=== PATIENT | female | born 1940 | race Caucasian/White ===

== ENCOUNTER 2018-03-23 10:00 | Inpatient (IN) | payer MEDICARE, OTHER ==
[2018-03-23] MEDS ORDERED: IPRATROPIUM/ALBUTEROL SULFATE 3 ML AMPUL.NEB NEB ONE ×2 (10:32→14:46)
--- NOTE | 2018-03-23 10:36 | ED Physician Documentation ---
Dyspnea - HISTORIAN Historian: patient - HPI Chief Complaint: Dyspnea Additional Information: 77yo white female who has a hisotry of asthma, COPD, CAD. States that she has been having some increase difficulties with breathing over the last 3 week. Has gotten worse over that last 36hours. Has been using Duoneb several times a day to help with her breathing. Has been wheezing and coughing, productive of some clear/green phlegm. No heomphysis noted. Patient has a history of CHF. Patient has been noticing some increasing peel edema the denies that she is heading increasing weight. Patient had similar symptoms with the increasing peel edema several weeks ago and increase to Lasix for short period of time. Patient denies any chest pain chest pressure.Patient comes in for an evaluation and treatment of the breathing problems. Onset: other (weeks, wore over the last 36 hours) Duration: continues in ED Initiating Event: denies: upper respiratory illness, out of meds Context: no precipitating factor noted. Exacerbated By: exertion Associated Symptoms: denies: chills, fever - ROS CONST: no problems MS/SKIN/LYMPH: denies: neck pain, rash - PAST HX Lung Disease: asthma, COPD Cardiac Disease: CAD, other (decrase hearing, hypothyroidism) PE Risk Factors: leg swelling, other (traveling) Surgeries/Procedures: appendectomy, other ( x 3, hernia repair, left breast lumpectomy, AP Bladder repair, L oopherectomy, ORIF hip fracture) Allergies/Adverse Reactions: Allergies Allergy/AdvReac Type Severity Reaction Status Date / Time Sulfa (Sulfonamide Allergy Verified 03/23/18 10:36 Antibiotics) Home Medications: Ambulatory Orders Medication Instructions Recorded Albuterol Sulfate [Proair HFA] 2 puff INH PRN PRN 03/23/18 Aspirin [Radha] 1 tab PO DAILY 03/23/18 Carvedilol [Coreg] 1 tab PO BID 03/23/18 Duloxetine HCl [Cymbalta] 1 tab PO [id number] 03/23/18 Furosemide [Lasix] 1 tab PO DAILY 03/23/18 Hydroxychloroquine Sulfate 1 tab PO BID 03/23/18 [Plaquenil] Levothyroxine Sodium [Levo-T] 1 tab PO DAILY 03/23/18 Pantoprazole Sodium [Protonix] 1 tab PO DAILY 03/23/18 Rosuvastatin Calcium [Crestor] 1 tab PO HS 03/23/18 Telmisartan [Telmisartan] 1 tab PO DAILY 03/23/18 - SOCIAL HX Smoking History: non-smoker, quit greater than 1 year (1981) Alcohol Use: none Drug Use: none - FAMILY HX Family History: no significant history - REVIEWED ASSESSMENTS Nursing Assessment Reviewed: Yes Vitals Reviewed: Yes Progress - Progress Progress: 11:42 D dimer is elevated, will get CT scan of chest to R/O DVT. BNP elevated also but no pulmonary congestion noted on chest x-ray. Patient did get osme relief from Duoneb. 13:28 Patient states that she has some type of allergic reaction when she recieved IV contrast dye in the past about 25 years ago. Had a rash, ? breathing problems. Has not had CT contrast dye since that time. Will get venous doppler study done. ED Results Lab/Radiology - Radiology Radiology Impressions: Examination: PA and lateral chest. History: DYSPNEA X 10 DAYS HX OF COPD/ASTHMA (Hx) Comparison exam: None provided. Findings: PA lateral chest demonstrate a normal cardiac and mediastinal silhouette. Tortuous aorta with vascular calcifications involving the aortic arch. No focal infiltrate. No blunting of the costophrenic margins. Hilar granuloma. Left-sided cardiac pacemaker. Osseous structures are appropriate for age. Impression: No acute appearing pulmonary process. Examination: Ultrasound vein bilaterally History: pt allergic to ct contrast r/o PE bilat lower leg venous Findings: Sonographic evaluation of the lower extremity venous system from the groin to the popliteal fossa inclusive bilaterally. Normal compressibility. No luminal filling defect. Normal waveforms and response to augmentation. No popliteal region fluid collection. Impression: No evidence for deep venous thrombosis. - Orders Orders: ED Orders Category Date Time Status Continuous EKG monitoring Q30M Care 03/23/18 10:30 Ordered Continuous Pulse Oximetry Q30M Care 03/23/18 10:[address] IV Lock 1T Care 03/23/18 10:30 Ordered CHEST 2VIEW [RAD] Routine Exams 03/23/18 Ordered BNP [NT-proBNP] Routine Lab 03/23/18 Ordered CBC/PLATELET/DIFF Routine Lab 03/23/18 10:30 Ordered CMP Routine Lab 03/23/18 10:30 Ordered D DIMER Routine Lab 03/23/18 Ordered TROPONIN I (cTnI) Stat Lab 03/23/18 10:30 Ordered Ipratropium/Albuterol Sulfate [Duoneb] Med 03/23/18 10:32 Once 3 ml NEB NOW ONE Oxygen Daily Oxygen 03/23/18 10:30 Ordered EKG WITH COMPARISON Routine Ther 03/23/18 Completed EKG WITH COMPARISON Stat Ther 03/23/18 10:30 Ordered Dyspnea Physical Exam - EXAM General Appearance: alert, mild distress EENT: eye inspection normal, ENT inspection normal, pharynx normal Neck: nml inspection Respiratory: breath sounds nml, no pain on inspiration, speaks full sentences, respiratory distress (mild), wheezes, rales, no pleuritic chest pain CVS: reg. rate & rhythm, no murmur, no gallop, no friction rub, pulses full, pulses equal Abdomen: non-tender, no organomegaly, no distention, no ascites Skin: color nml, no rash, cyanosis, diaphoresis Extremities: non-tender, edema Neuro/Psych: oriented x3, CN's nml as tested, motor nml, sensation nml, mood/ affect nml Discharge Clincal Impression: Acute exacerbation of COPD with asthma Condition: Stable Disposition: ADMITTED INPATIENT Decision to Admit: [id number] Date of Decison to Admit: 03/23/18 Decision Time: 15:01
[2018-03-23 10:45] LABS: BASOPHILS % 1.2 (0.0-1.5); MEAN CORPUSCULAR HEMOGLOBIN 30.7 pg (28.0-34.0); MEAN CORPUSCULAR VOLUME 100.4 fl (80.0-100.0); MONOCYTES % 7.2 % (0.0-11.0); NEUTROPHILS # 1.9 # k/uL (1.4-7.7)
[2018-03-23 11:02] LABS: eGFR (African) > 60; eGFR (Non-African) > 60
[2018-03-23] MEDS ORDERED: methylPREDNISolone SOD SUCC 125 MG/2 ML VIAL IVP ONE (12:05)
--- NOTE | 2018-03-23 14:12 | Diagnostic Imaging Report ---
GISELLE MENSAH [facility] [address] [facility].[address] [address] Report Submission Date: Mar 23, 2018 11:51:42 AM CDT Patient Study Name: ANAI GONZALEZ Date: Mar 23, 2018 11:20:37 AM CDT Modality Type: DX Gender: F Description: CHEST : 38 Institution: [facility] Physician: GISELLE MENSAH Examination: PA and lateral chest. History: DYSPNEA X 10 DAYS HX OF COPD/ASTHMA (Hx) Comparison exam: None provided. Findings: PA lateral chest demonstrate a normal cardiac and mediastinal silhouette. Tortuous aorta with vascular calcifications involving the aortic arch. No focal infiltrate. No blunting of the costophrenic margins. Hilar granuloma. Left-sided cardiac pacemaker. Osseous structures are appropriate for age. Impression: No acute appearing pulmonary process. Electronically signed on Mar 23, 2018 11:51:42 AM CDT by: Simon CASTILLO
[2018-03-23 14:21] LABS: APPEARANCE,URINE CLEAR (CLEAR); COLOR,URINE YELLOW (YELLOW); OCCULT BLOOD,URINE NEGATIVE (NEGATIVE); UROBILINOGEN URINE 0.2 Eu (0.2-1.0)
--- NOTE | 2018-03-23 15:51 | Diagnostic Imaging Report ---
GISELLE MENSAH [facility] [address] [facility], [facility] [address] [address] Report Submission Date: Mar 23, 2018 3:41:07 PM CDT Patient Study Name: ANAI GONZALEZ Date: Mar 23, 2018 2:00:50 PM CDT Modality Type: US Gender: F Description: : 38 Institution: [facility] Physician: GISELLE MENSAH Examination: Ultrasound vein bilaterally History: pt allergic to ct contrast r/o PE bilat lower leg venous Findings: Sonographic evaluation of the lower extremity venous system from the groin to the popliteal fossa inclusive bilaterally. Normal compressibility. No luminal filling defect. Normal waveforms and response to augmentation. No popliteal region fluid collection. Impression: No evidence for deep venous thrombosis. Electronically signed on Mar 23, 2018 3:41:07 PM CDT by: Simon CASTILLO
--- NOTE | 2018-03-23 16:38 | History and Physical Report ---
History of Present Illnes - History of Present Illness Reason for Visit: dyspnea History of Present Illness: Patient is a 69-year-old white female with a known history of COPD and asthma. Patient states she is been having some increasing dyspnea shortness of breath over the last three weeks. However over the last 3 to 4 days symptoms of progressively be getting worse. Patient subsequently came into the ED for evaluation. Patient was noted to be hypoxic with an SaO2 in the lower to mid 80 range on room air. Patient was given to DuoNeb treatments with improvement to her oxygenation to 88 to 92%. Patient was given Solu-Medrol hundred 25 mg IV in the ED. Patient had a BNP and D dimer which were both elevated. Patient was not able to have a CT scan done of the chest due to past allergic reaction to IV contrast by. Patient did have ultrasound of the lower extremities bilaterally and were negative for DVTs. Chest x-ray did not show any evidence of increasing pulmonary congestion. Patient was felt to be have an exacerbation of her COPD was subsequently admitted to the hospital for further evaluation and treatment. - Past Medical History Cardiac: CAD, CHF, HTN, Hyperlipidemia Pulmonary: Asthma, COPD Gastrointestinal: Constipation, GERD Hepatobiliary: Hep A/B/C (hep A) ENT: Other (decrease hearing) Renal/: Chronic renal insuff Endocrine: Hypothyroidism, Other (pituitary tumor recently removed) - Past Surgical History Past Surgical History: Appendectomy, (x3), Other (ORIF hip fracture, left oopherectomy, AP bladder repair, lumpectomy left breast) - Past Social History Smoke: # pack years (20), Quit (1981) Occupation: retired Alcohol: None Drugs: None Lives: With Family Domestic Violence: Negative - Health Maintenance Health Maintenance: Cholesterol, Influenza Vaccine, Pneumococcal Vaccine, Mammogram, Colonoscopy Influenza Vaccine: Current for this Influenza Season Pneumonia Vaccine: Yes Resuscitation Status: FULL CODE but no mechanical ventolations - Unable to Obtain History Unable to Obtain: No Review of Systems - Review of Systems Constitutional: Weakness. negative: Fever, Chills, Sweats, Malaise Eyes: negative: pain, vision change, conjunctivae inflammation ENT: negative: Ear Pain, Ear Discharge, Nose Pain, Nose Discharge, Nose Congestion, Mouth Pain, Mouth Swelling, Throat Pain, Throat Swelling Respiratory: Cough, Shortness of Breath, SOB with Excertion, Sputum, Wheezing. negative: Dry, Hemoptysis, Pleuritic Pain Cardiovascular: negative: Chest Pain, Palpitations, Orthopnea, Paroxysmal Noc. Dyspnea, Edema, Light Headedness Gastrointestinal: Constipation. negative: Nausea, Vomiting, Abdominal Pain, Diarrhea, Melena, Hematochezia Genitourinary: negative: Dysuria, Frequency, Hematuria Musculoskeletal: Leg Pain (hip). negative: Neck Pain, Shoulder Pain, Arm Pain, Hand Pain Skin: negative: Rash Neurological: negative: Weakness, Numbness, Incoordination, Change in Speech, Confusion, Seizures - Medications/Allergies Allergies/Adverse Reactions: Allergies Allergy/AdvReac Type Severity Reaction Status Date / Time Sulfa (Sulfonamide Allergy Verified 03/23/18 10:36 Antibiotics) Home Medications: Home Medications Albuterol Sulfate [Proair HFA] 2 puff INH PRN PRN 03/23/18 Aspirin [Radha] 1 tab PO DAILY 03/23/18 Carvedilol [Coreg] 1 tab PO BID 03/23/18 Duloxetine HCl [Cymbalta] 1 tab PO [id number] 03/23/18 Furosemide [Lasix] 1 tab PO DAILY 03/23/18 Hydroxychloroquine Sulfate [Plaquenil] 1 tab PO BID 03/23/18 Levothyroxine Sodium [Levo-T] 1 tab PO DAILY 03/23/18 Pantoprazole Sodium [Protonix] 1 tab PO DAILY 03/23/18 Rosuvastatin Calcium [Crestor] 1 tab PO HS 03/23/18 Telmisartan [Telmisartan] 1 tab PO DAILY 03/23/18 Exam - Exam General: Alert, Oriented to Person, Oriented to Place, Oriented to Time, Cooperative, Mild distress, Obese HEENT: Atraumatic, PERRLA, EOMI, Mouth Mucous membr. moist/Vandiver, Nose Mucous membr. moist/Vandiver, Edentulous, Decreased Hearing Acuity Neck: Normal Range of Motion Carotids: WNL Thyroid: WNL Lungs: Normal air movement, Speaks full Sentences, Wheezes, Rales (scattered) Cardiovascular: Regular rate, Normal S1, Normal S2, No murmurs. No: Gallops, Murmur, Irregularly Irregular Abdomen: Normal bowel sounds, Soft, No tenderness, No hepatospenomegaly, No masses Integumentary: Normal, Vandiver, Warm, Dry Extremities: No clubbing, No cyanosis, No edema, Normal pulses, No tenderness/ swelling Neurological: Normal gait, Normal speech, Strength Equal Bilat, Normal tone, Sensation intact, Cranial nerves 3-12 NL, Reflexes 2+ Psych/Mental Status: Mental status NL, Mood NL, Appropriate Affect, Intact Judgment Assessment/Plan - Assessment/Plan (1) Acute exacerbation of COPD with asthma Status: Acute Current Visit: Yes (2) CHF (congestive heart failure) Status: Acute Current Visit: Yes (3) Hypothyroidism Status: Acute Current Visit: Yes (4) Hypertension Status: Acute Current Visit: Yes VTE Assessment - RISK FACTOR SCORE VTE RISK FACTOR SCORES: AGE OVER 60 YEARS, ACUTE RESPIRATORY FAILURE/SEVERE COPD , ANTICIPATED BED CONFINEMENT OR IMMOBILIZATION > 24 HOURS - RISK VTE HIGH RISK: SCORE OF 3-4 (RISK PROXIMAL DVT 4-8%) PROPHYLAXIS NEEDED
[2018-03-23 16:51] VITALS: BMI 33.0
[2018-03-23] MEDS ORDERED: FUROSEMIDE 20 MG TABLET PO ONE (18:20)
[2018-03-23] MEDS: methylPREDNISolone SOD SUCC 40 MG/ML VIAL IVP SCH ×2 (18:28→20:19)
[2018-03-23] MEDS: ENOXAPARIN SODIUM 30 MG/0.3 ML DISP.SYRIN SQ SCH (18:30)
[2018-03-23] MEDS: FUROSEMIDE 20 MG/2 ML VIAL IVP SCH ×2 (18:30→20:18)
[2018-03-23] MEDS: IPRATROPIUM/ALBUTEROL SULFATE 3 ML AMPUL.NEB NEB SCH ×2 (19:12→20:19)
[2018-03-23] MEDS ORDERED: SALINE FLUSH 10 ML DISP.SYRIN IV SCH (21:00)
[2018-03-23] MEDS ORDERED: CARVEDILOL 25 MG TABLET PO SCH (21:00)
[2018-03-23] MEDS ORDERED: HYDROXYCHLOROQUINE SULFATE 200 MG TABLET PO SCH (21:00)
[2018-03-23] MEDS: ACETAMINOPHEN 325 MG TABLET PO PRN (21:16)
[2018-03-24] MEDS: IPRATROPIUM/ALBUTEROL SULFATE 3 ML AMPUL.NEB NEB SCH ×6 (01:55→21:21)
[2018-03-24] MEDS: ACETAMINOPHEN 325 MG TABLET PO PRN (02:56)
[2018-03-24] MEDS ORDERED: TROLAMINE SALICYLATE TP PRN (04:20)
[2018-03-24] MEDS ORDERED: ALOE VERA TP PRN (04:20)
[2018-03-24 07:09] LABS: eGFR (African) > 60; eGFR (Non-African) > 60
[2018-03-24] MEDS: methylPREDNISolone SOD SUCC 40 MG/ML VIAL IVP SCH ×2 (08:35→19:57)
[2018-03-24] MEDS: FUROSEMIDE 20 MG/2 ML VIAL IVP SCH ×2 (08:38→19:54)
[2018-03-24] MEDS: PATIENT OWN MED 1 EACH EACH PO SCH (08:39)
[2018-03-24] MEDS: SALINE FLUSH 10 ML DISP.SYRIN IVF SCH ×2 (08:40→20:00)
[2018-03-24] MEDS ORDERED: CARVEDILOL 25 MG TABLET PO SCH (09:00)
[2018-03-24] MEDS ORDERED: ASPIRIN 81 MG CHEW TAB PO SCH ×2 (09:00)
[2018-03-24] MEDS ORDERED: LEVOTHYROXINE SODIUM 25 MCG TABLET PO SCH ×2 (09:00)
[2018-03-24] MEDS ORDERED: CARVEDILOL 12.5 MG TABLET PO SCH (09:00)
[2018-03-24] MEDS ORDERED: PATIENT OWN MED 1 EACH EACH PO SCH (09:00)
[2018-03-24] MEDS ORDERED: PANTOPRAZOLE SODIUM 40 MG TABLET PO SCH ×2 (09:00)
[2018-03-24] MEDS: HYDROXYCHLOROQUINE SULFATE 200 MG TABLET PO SCH ×2 (09:07→20:34)
--- NOTE | 2018-03-24 10:27 | Inpatient Progress Note ---
Subjective - Required Recertification Statement I anticipate X number of days because-include discharge plan: 1 day - Review of Systems Events since last encounter: Patient seems to be doing better. States that her breathing is better. Swelling in the lower extremities is improved. No chest pain or pressure noted. Is having some constipation problems/ Objective - Exam Vitals and I&O: Vital Signs Temp 97.6 F 03/24/18 09:46 Pulse 70 03/24/18 09:46 Resp 20 03/24/18 09:46 BP 176/78 03/24/18 09:46 Pulse Ox 94 03/24/18 09:46 Intake & Output 03/23/18 03/23/18 03/24/18 11:59 23:59 11:59 Intake Total 274 960 Balance 274 960 Weight 76.657 kg 74 kg Intake: IV 34 Right Hand 34 Oral 240 960 Other: Voiding Method Toilet Toilet # Voids 3 5 General: Alert, Oriented to Person, Oriented to Place, Oriented to Time, Cooperative Neck: Supple, No JVD Lungs: Normal air movement, Speaks full Sentences, Rhonchi (few scattered, improved over yesterday) Cardiovascular: Regular rate, Normal S1, Normal S2, No murmurs Abdomen: Normal bowel sounds, Soft, No tenderness, No hepatospenomegaly, No masses Extremities: Other (trace edema) Neurological: Normal gait, Normal speech Psych/Mental Status: Mental status NL, Mood NL, Intact Judgment - Results Results: Laboratory Results WBC 3.90 K/ul (4.00-12.00) L 03/23/18 10:40 RBC 3.64 M/ul (3.90-5.20) L 03/23/18 10:40 Hgb 11.2 g/dL (12.0-16.0) L 03/23/18 10:40 Hct 36.6 % (34.5-46.5) 03/23/18 10:40 MCV 100.4 fl (80.0-100.0) H 03/23/18 10:40 MCH 30.7 pg (28.0-34.0) 03/23/18 10:40 MCHC 30.6 g/dL (30.0-36.0) 03/23/18 10:40 RDW 13.8 % (11.3-14.3) 03/23/18 10:40 Plt Count 239 K/mm3 (130-400) 03/23/18 10:40 Neut % (Auto) 48.0 % (39.0-79.0) 03/23/18 10:40 Lymph % (Auto) 32.5 % (16.0-50.0) 03/23/18 10:40 [place]key % (Auto) 7.2 % (0.0-11.0) 03/23/18 10:40 Eos % (Auto) 8.0 % (0.0-6.8) H 03/23/18 10:40 Baso % (Auto) 1.2 (0.0-1.5) 03/23/18 10:40 Neut # (Auto) 1.9 # k/uL (1.4-7.7) 03/23/18 10:40 Lymph # (Auto) 1.3 # k/uL (0.6-4.0) 03/23/18 10:40 Dickey # (Auto) 0.3 # k/uL (0.0-0.9) 03/23/18 10:40 Eos # (Auto) 0.3 # k/uL (0.0-0.6) 03/23/18 10:40 Baso # (Auto) 0.0 # k/uL (0.0-0.5) 03/23/18 10:40 Reactive Lymphs % 3.0 % (0.0-5.0) 03/23/18 10:40 Reactive Lymphs # 0.1 # k/uL (0.0-0.8) 03/23/18 10:40 D-Dimer 965 ng/mL (6.0-682) H 03/23/18 10:40 Sodium 141 mmol/L (136-145) 03/24/18 06:30 Potassium 3.8 mmol/L (3.5-5.1) 03/24/18 06:30 Chloride 98 mmol/L (98-107) 03/24/18 06:30 Carbon Dioxide 33 mmol/L (22-30) H 03/24/18 06:30 BUN 17 mg/dL (7-17) 03/24/18 06:30 Creatinine 0.80 mg/dL (0.52-1.04) 03/24/18 06:30 Estimated Creat Clear 79 03/24/18 06:30 Est GFR ( Amer) > 60 (60-) 03/24/18 06:30 Est GFR (Non-Af Amer) > 60 (60-) 03/24/18 06:30 Glucose 161 mg/dL (74-106) H 03/24/18 06:30 Calcium 9.7 mg/dL (8.4-10.2) 03/24/18 06:30 Total Bilirubin 0.3 mg/dL (0.2-1.3) 03/23/18 10:40 AST 22 U/L (15-46) 03/23/18 10:40 ALT 31 U/L (13-69) 03/23/18 10:40 Alkaline Phosphatase 73 U/L (38-126) 03/23/18 10:40 Troponin I < 0.03 ng/mL (0.03-0.06) L 03/23/18 10:40 NT-Pro-B Natriuret Pep 826.1 pg/mL (15.0-450.0) H 03/23/18 10:40 Total Protein 7.4 g/dL (6.3-8.2) 03/23/18 10:40 Albumin 4.2 g/dL (3.5-5.0) 03/23/18 10:40 Urine Color Yellow (YELLOW) 03/23/18 10:50 Urine Appearance Clear (CLEAR) 03/23/18 10:50 Urine pH 7.0 (5.0 - 8.0) 03/23/18 10:50 Ur Specific [place] 1.020 (1.010-1.030) 03/23/18 10:50 Urine Protein Negative mg/dL (NEGATIVE) 03/23/18 10:50 Urine Ketones Negative mg/dL (NEGATIVE) 03/23/18 10:50 Urine Occult Blood Negative (NEGATIVE) 03/23/18 10:50 Urine Nitrite Negative (NEGATIVE) 03/23/18 10:50 Urine Bilirubin Negative (NEGATIVE) 03/23/18 10:50 Urine Urobilinogen 0.2 Eu (0.2-1.0) 03/23/18 10:50 Ur Leukocyte Esterase Negative (NEGATIVE) 03/23/18 10:50 Urine Glucose Negative mg/dL (NEGATIVE) 03/23/18 10:50 Assessment/Plan - Assessment/Plan (1) Acute exacerbation of COPD with asthma Status: Acute Current Visit: Yes Assessment: improved, will try to wean off oxygen (2) CHF (congestive heart failure) Status: Chronic Current Visit: Yes Qualifiers: Heart failure type: systolic Heart failure chronicity: chronic Qualified Code(s): I50.22 - Chronic systolic (congestive) heart failure (3) Hypertension Status: Chronic Current Visit: Yes Qualifiers: Hypertension type: essential hypertension Qualified Code(s): I10 - Essential (primary) hypertension Assessment: improved from yesterday.
[2018-03-24] MEDS ORDERED: POLYETHYLENE GLYCOL 3350 17 GM POWD.PACK PO SCH (11:00)
[2018-03-24] MEDS: ENOXAPARIN SODIUM 30 MG/0.3 ML DISP.SYRIN SQ SCH (17:28)
[2018-03-24] MEDS: CARVEDILOL 12.5 MG TABLET PO SCH (20:35)
[2018-03-24] MEDS ORDERED: DULoxetine HCL 30 MG CAPSULE.DR PO SCH (21:00)
[2018-03-25] MEDS ORDERED: ASPIRIN EC 81 MG TABLET.DR ONE (01:02)
[2018-03-25] MEDS: IPRATROPIUM/ALBUTEROL SULFATE 3 ML AMPUL.NEB NEB SCH ×3 (01:12→09:26)
[2018-03-25 08:32] VITALS: BP 123/75
[2018-03-25] MEDS ORDERED: PANTOPRAZOLE SODIUM 40 MG TABLET PO SCH (09:00)
[2018-03-25] MEDS ORDERED: LEVOTHYROXINE SODIUM 25 MCG TABLET PO SCH (09:00)
[2018-03-25] MEDS ORDERED: ASPIRIN 81 MG CHEW TAB PO SCH (09:00)
[2018-03-25] MEDS: FUROSEMIDE 20 MG/2 ML VIAL IVP SCH (09:26)
[2018-03-25] MEDS: methylPREDNISolone SOD SUCC 40 MG/ML VIAL IVP SCH (09:27)
[2018-03-25] MEDS: SALINE FLUSH 10 ML DISP.SYRIN IVF SCH (09:28)
[2018-03-25] MEDS: CARVEDILOL 12.5 MG TABLET PO SCH (09:29)
[2018-03-25] MEDS: HYDROXYCHLOROQUINE SULFATE 200 MG TABLET PO SCH (09:29)
[2018-03-25] MEDS: PATIENT OWN MED 1 EACH EACH PO SCH (09:29)
[2018-03-25] MEDS ORDERED: POLYETHYLENE GLYCOL 3350 17 GM POWD.PACK PO SCH (11:00)
--- NOTE | 2018-04-01 12:47 | Discharge Summary ---
Discharge Summary - Discharge Sumary History of Present Illness: Patient is a 69-year-old white female with a known history of COPD and asthma. Patient states she is been having some increasing dyspnea shortness of breath over the last three weeks. However over the last 3 to 4 days symptoms of progressively be getting worse. Patient subsequently came into the ED for evaluation. Patient was noted to be hypoxic with an SaO2 in the lower to mid 80 range on room air. Patient was given to DuoNeb treatments with improvement to her oxygenation to 88 to 92%. Patient was given Solu-Medrol hundred 25 mg IV in the ED. Patient had a BNP and D dimer which were both elevated. Patient was not able to have a CT scan done of the chest due to past allergic reaction to IV contrast by. Patient did have ultrasound of the lower extremities bilaterally and were negative for DVTs. Chest x-ray did not show any evidence of increasing pulmonary congestion. Patient was felt to be have an exacerbation of her COPD was subsequently admitted to the hospital for further evaluation and treatment. Condition at Discharge: Stable Home Medications: Ambulatory Orders Medication Instructions Recorded Albuterol Sulfate [Proair HFA] 2 puff INH PRN PRN 03/23/18 Aspirin [Radha] 1 tab PO DAILY 03/23/18 Carvedilol [Coreg] 1 tab PO BID 03/23/18 Duloxetine HCl [Cymbalta] 1 tab PO [id number] 03/23/18 Furosemide [Lasix] 1 tab PO DAILY 03/23/18 Hydroxychloroquine Sulfate 1 tab PO BID 03/23/18 [Plaquenil] Levothyroxine Sodium [Levo-T] 1 tab PO DAILY 03/23/18 Pantoprazole Sodium [Protonix] 1 tab PO DAILY 03/23/18 Rosuvastatin Calcium [Crestor] 1 tab PO HS 03/23/18 Telmisartan 1 tab PO DAILY 03/23/18 predniSONE [Deltasone] 10 mg PO DIRECTED #31 tablet 03/25/18 Consultations this Visit: None Procedures this Visit: None Allergies/Adverse Reactions: Allergies Allergy/AdvReac Type Severity Reaction Status Date / Time Sulfa (Sulfonamide Allergy Verified 03/23/18 10:36 Antibiotics) Discharge Summary: At the time of admission patient was started on supplemental oxygen to maintain SaO2 greater than 92%. Patient was started on DuoNeb nebulization treatments every four hours to help with her bronchospasms and to help mobilize accretions. Patient was started on IV Solu-Medrol. During the first 24 hours patient respiratory status did improve and her weaving improved slightly. Over the next 24 hours patient made significant gains in her respiratory status. Patient was able to ambulate while maintaining SaO2. Patient did have a mild nonproductive cough. Patient vital signs remain stable. Patient labs remain stable. At the time of admission patient did have an elevator d-dimer. A CT scan was done Alan pulmonary nebulization. No evidence of a PE could be found. Patient was discharged home in stable condition. - Final Diagnosis (1) Acute exacerbation of COPD with asthma Problems: improved (2) CHF (congestive heart failure) Problems: stable on home meds (3) Hypothyroidism Problems: stable on home meds (4) Hypertension Problems: stable on home meds
== END 2018-03-25 11:45 | disposition home or self-care (01) | DRG 191 ==
LOC: ED 10:00 → SOUTH 15:32
PROVIDERS: ADMIT Family Medicine; ATTEND Family Medicine
DX: J44.1 Chronic obstructive pulmonary disease with (acute) exacerbation (principal); J45.901 Unspecified asthma with (acute) exacerbation; I25.10 Atherosclerotic heart disease of native coronary artery without angina pectoris; I11.0 Hypertensive heart disease with heart failure; I50.9 Heart failure, unspecified; E03.9 Hypothyroidism, unspecified
CPT/HCPCS: 36415; 71046; 80048; 80053; 81002; 83880; 84484; 85025; 85379; 93005; 93970; A9270; J1650; J1940; J2920; J2930; 94640; 96374; 99222; 99232; 99238; J1030; S1016

== ENCOUNTER 2018-04-06 09:32 | Inpatient (IN) | payer OTHER ==
--- NOTE | 2018-04-06 09:50 | ED Physician Documentation ---
Dyspnea - HISTORIAN Historian: patient - HPI Stated Complaint: Cough Chief Complaint: Cough/ Upper Respiratory Additional Information: Patient is a 77-year-old white female who approximately one week ago was admitted to acute care following acute exacerbation of her COPD/asthma. Patient seemed to be doing well until the last three days. Patient then began to develop some increasing dyspnea and a productive cough up some green to leon phlegm. Patient has had a low-grade fever. No chills noted. Patient is finishing up her prednisone taper. Patient denied any chest pain. Has been having some nasal drainage. Patient subsequently came to the emergency room for evaluation. Patient states that on the morning of admission her SaO2 was 85% on room air. Patient was seen in the emergency room on admission to the ED patient SaO2 was 88% on room air. Patient was given a DuoNeb treatment and started on supplemental oxygen. Patient did have a chest x-ray which showed a new patchy infiltrate. Patient WBC count was elevated at 15,000. It was felt that the patient with developing a pneumonia and was subsequently admitted to the hospital for further care and evaluation. Onset: days ago (3 dys ago) Duration: continues in ED (ffffffffffffffff) Severity: moderate Exacerbated By: coughing, other (movement) Associated Symptoms: chills, productive cough. denies: chest discomfort, heart racing - ROS CONST: no problems - PAST HX Lung Disease: asthma, COPD Cardiac Disease: none (you will) Allergies/Adverse Reactions: Allergies Allergy/AdvReac Type Severity Reaction Status Date / Time Sulfa (Sulfonamide Allergy Verified 04/06/18 09:46 Antibiotics) Home Medications: Ambulatory Orders Medication Instructions Recorded Albuterol Sulfate [Proair HFA] 2 puff INH PRN PRN 03/23/18 Aspirin [Radha] 1 tab PO DAILY 03/23/18 Carvedilol [Coreg] 1 tab PO BID 03/23/18 Duloxetine HCl [Cymbalta] 1 tab PO [id number] 03/23/18 Furosemide [Lasix] 1 tab PO DAILY 03/23/18 Hydroxychloroquine Sulfate 1 tab PO BID 03/23/18 [Plaquenil] Levothyroxine Sodium [Levo-T] 1 tab PO DAILY 03/23/18 Pantoprazole Sodium [Protonix] 1 tab PO DAILY 03/23/18 Rosuvastatin Calcium [Crestor] 1 tab PO HS 03/23/18 Telmisartan 1 tab PO DAILY 03/23/18 - SOCIAL HX Smoking History: non-smoker - FAMILY HX Family History: no significant history - VITAL SIGNS Vital Signs: Vital Signs Temp Pulse Resp BP Pulse Ox 99.2 F 69 17 139/89 88 L 04/06/18 09:40 04/06/18 09:40 04/06/18 09:40 04/06/18 09:40 04/06/18 09:40 ED Results Lab/Radiology - Radiology Radiology Impressions: Examination: PA and lateral chest. History: Evaluate lung mason. COUGH, SHORT OF BREATH X 4 DAYS. (Hx) Comparison exam: 23 March 2018 Findings: PA lateral chest demonstrate a normal cardiac and mediastinal silhouette. Tortuous aorta vascular calcifications involving the aortic arch. New parenchymal density right lower lung posteriorly. No blunting of the costophrenic margins. Hilar calcified granuloma. Left-sided cardiac pacemaker. Articular degenerative changes. Impression: New small focal infiltrate right lower lung posteriorly. No effusion. Dyspnea Physical Exam - EXAM General Appearance: no acute distress, alert, mild distress Neck: nml inspection Respiratory: breath sounds nml, wheezes (mils), rales (RLL psoterior). No: rhonchi CVS: reg. rate & rhythm, no murmur, no gallop, no friction rub, pulses full Abdomen: non-tender, no organomegaly, no distention Skin: color nml, no rash, cyanosis Extremities: non-tender, normal range of motion, no evidence of injury, no edema Neuro/Psych: oriented x3, CN's nml as tested, mood/affect nml Discharge Clincal Impression: RLL pneumonia Referrals: Joseph Hernández MD [Primary Care Provider] - 2 Days Condition: Stable Disposition: ADMITTED INPATIENT Decision to Admit: [id number] Date of Decison to Admit: 04/06/18 Decision Time: 11:36
[2018-04-06] MEDS ORDERED: IPRATROPIUM/ALBUTEROL SULFATE 3 ML AMPUL.NEB NEB ONE ×2 (10:57)
[2018-04-06 11:03] LABS: MEAN CORPUSCULAR HEMOGLOBIN 30.7 pg (28.0-34.0); MEAN CORPUSCULAR VOLUME 98.4 fl (80.0-100.0)
[2018-04-06 11:15] LABS: SEGMENTED NEUTROPHILS % 92 % (39-79); eGFR (African) > 60; eGFR (Non-African) > 60
[2018-04-06 11:16] LABS: EOSINOPHILS % 1 % (0-7); MONOCYTES % 3 % (0-11)
--- NOTE | 2018-04-06 11:24 | Diagnostic Imaging Report ---
GISELLE MENSAH [facility] [address] [facility] [address] [address] Report Submission Date: Apr 06, 2018 11:10:02 AM CDT Patient Study Name: ANAI GONZALEZ Date: Apr 06, 2018 10:03:33 AM CDT Modality Type: DX Gender: F Description: CHEST : 38 Institution: [facility] Physician: GISELLE MENSAH Examination: PA and lateral chest. History: Evaluate lung mason. COUGH, SHORT OF BREATH X 4 DAYS. (Hx) Comparison exam: 23 March 2018 Findings: PA lateral chest demonstrate a normal cardiac and mediastinal silhouette. Tortuous aorta vascular calcifications involving the aortic arch. New parenchymal density right lower lung posteriorly. No blunting of the costophrenic margins. Hilar calcified granuloma. Left-sided cardiac pacemaker. Articular degenerative changes. Impression: New small focal infiltrate right lower lung posteriorly. No effusion. Electronically signed on Apr 06, 2018 11:10:02 AM CDT by: Simon CASTILLO
[2018-04-06] MEDS ORDERED: LEVOFLOXACIN 500MG/D5W 100ML 100 ML IV ONE (11:54)
[2018-04-06] MEDS: LEVOFLOXACIN 500MG/D5W 100ML 500 MG in PREMIX BAG 1 BAG IV SCH (12:01)
[2018-04-06] MEDS: IPRATROPIUM/ALBUTEROL SULFATE 3 ML AMPUL.NEB NEB SCH ×3 (13:19→20:10)
[2018-04-06] MEDS: AZITHROMYCIN 500 MG in 0.9 % SODIUM CHLORIDE 250 ML IV SCH (14:25)
[2018-04-06 14:34] VITALS: BMI 74.7
[2018-04-06] MEDS: ENOXAPARIN SODIUM 30 MG/0.3 ML DISP.SYRIN SQ SCH (15:15)
[2018-04-06] MEDS: DULoxetine HCL 30 MG CAPSULE.DR PO SCH ×2 (17:55→20:08)
[2018-04-06] MEDS: HYDROXYCHLOROQUINE SULFATE 200 MG TABLET PO SCH (20:09)
[2018-04-06] MEDS ORDERED: HYDROXYCHLOROQUINE SULFATE 200 MG TABLET PO SCH (21:00)
[2018-04-06] MEDS ORDERED: CARVEDILOL 25 MG TABLET PO SCH (21:00)
[2018-04-07] MEDS: IPRATROPIUM/ALBUTEROL SULFATE 3 ML AMPUL.NEB NEB SCH ×6 (01:05→20:46)
[2018-04-07] MEDS ORDERED: ACETAMINOPHEN 325 MG TABLET ONE (01:16)
[2018-04-07] MEDS: ACETAMINOPHEN 325 MG TABLET PO PRN ×2 (01:20→19:46)
[2018-04-07 07:10] LABS: BASOPHILS % 0.2 (0.0-1.5); EOSINOPHILS % 1.3 % (0.0-6.8); MEAN CORPUSCULAR HEMOGLOBIN 30.9 pg (28.0-34.0); MEAN CORPUSCULAR VOLUME 98.1 fl (80.0-100.0); MONOCYTES % 3.6 % (0.0-11.0); NEUTROPHILS # 9.4 # k/uL (1.4-7.7)
[2018-04-07 07:19] LABS: eGFR (African) > 60; eGFR (Non-African) > 60
[2018-04-07] MEDS ORDERED: LEVOFLOXACIN 500MG/D5W 100ML 100 ML IV ONE (08:29)
[2018-04-07] MEDS: LEVOFLOXACIN 500MG/D5W 100ML 500 MG in PREMIX BAG 1 BAG IV SCH (08:43)
[2018-04-07] MEDS: HYDROXYCHLOROQUINE SULFATE 200 MG TABLET PO SCH ×2 (08:45→20:23)
[2018-04-07] MEDS ORDERED: PANTOPRAZOLE SODIUM 40 MG TABLET PO SCH (09:00)
[2018-04-07] MEDS ORDERED: FUROSEMIDE 20 MG TABLET PO SCH (09:00)
[2018-04-07] MEDS ORDERED: LEVOTHYROXINE SODIUM 25 MCG TABLET PO SCH (09:00)
[2018-04-07] MEDS ORDERED: LOSARTAN POTASSIUM 50 MG TABLET PO SCH (09:00)
[2018-04-07] MEDS ORDERED: ASPIRIN 81 MG CHEW TAB PO SCH (09:00)
[2018-04-07] MEDS ORDERED: CARVEDILOL 12.5 MG TABLET PO ONE (12:15)
[2018-04-07] MEDS: AZITHROMYCIN 500 MG in 0.9 % SODIUM CHLORIDE 250 ML IV SCH (12:56)
[2018-04-07] MEDS: SIMETHICONE 80 MG TAB.CHEW PO PRN (14:23)
[2018-04-07] MEDS: ENOXAPARIN SODIUM 30 MG/0.3 ML DISP.SYRIN SQ SCH (14:23)
[2018-04-07] MEDS ORDERED: LOSARTAN POTASSIUM 50 MG TABLET PO ONE (18:19)
[2018-04-07] MEDS: POLYETHYLENE GLYCOL 3350 17 GM POWD.PACK PO SCH (18:27)
[2018-04-07] MEDS: CARVEDILOL 12.5 MG TABLET PO SCH (20:22)
[2018-04-07] MEDS: DULoxetine HCL 30 MG CAPSULE.DR PO SCH (20:23)
[2018-04-07] MEDS ORDERED: CARVEDILOL 12.5 MG TABLET PO SCH (21:00)
[2018-04-07] MEDS ORDERED: CARVEDILOL 25 MG TABLET PO SCH (21:00)
--- NOTE | 2018-04-07 21:40 | History and Physical Report ---
History of Present Illnes - History of Present Illness Reason for Visit: dyspnea, cough History of Present Illness: Patient is a 77-year-old white female who approximately one week ago was admitted to acute care following acute exacerbation of her COPD/asthma. Patient seemed to be doing well until the last three days. Patient then began to develop some increasing dyspnea and a productive cough up some green to leon phlegm. Patient has had a low-grade fever. No chills noted. Patient is finishing up her prednisone taper. Patient denied any chest pain. Has been having some nasal drainage. Patient subsequently came to the emergency room for evaluation. Patient states that on the morning of admission her SaO2 was 85% on room air. Patient was seen in the emergency room on admission to the ED patient SaO2 was 88% on room air. Patient was given a DuoNeb treatment and started on supplemental oxygen. Patient did have a chest x-ray which showed a new patchy infiltrate. Patient WBC count was elevated at 15,000. It was felt that the patient with developing a pneumonia and was subsequently admitted to the hospital for further care and evaluation. - Past Medical History Cardiac: CAD, CHF, HTN, Hyperlipidemia Pulmonary: Asthma, COPD Gastrointestinal: Constipation, GERD Hepatobiliary: Hep A/B/C (hep A) ENT: Other (decrease hearing) Renal/: Chronic renal insuff Endocrine: Hypothyroidism, Other (pituitary tumor recently removed) - Past Surgical History Past Surgical History: Appendectomy, (x3), Other (ORIF hip fracture, left oopherectomy, AP bladder repair, lumpectomy left breast) - Past Family History Mother Family History: Father Family History: - Past Social History Smoke: # pack years (20), Quit (1981) Occupation: retired Alcohol: None Drugs: None Lives: With Family Domestic Violence: Negative - Health Maintenance Health Maintenance: Cholesterol, Influenza Vaccine, Pneumococcal Vaccine, Mammogram, Colonoscopy Influenza Vaccine: Current for this Influenza Season Pneumonia Vaccine: Yes Resuscitation Status: Resusciation Status Resuscitation Status Full Code - Unable to Obtain History Unable to Obtain: No Review of Systems - Review of Systems Constitutional: Fever, Chills, Weakness. negative: Sweats Eyes: negative: pain, vision change ENT: Other (ecrease hearing). negative: Ear Pain, Ear Discharge, Nose Pain, Nose Discharge, Nose Congestion, Mouth Pain, Mouth Swelling, Throat Pain Respiratory: Cough, Shortness of Breath, SOB with Excertion, Sputum (thick green ). negative: Hemoptysis Cardiovascular: negative: Chest Pain, Palpitations, Orthopnea Gastrointestinal: Constipation. negative: Nausea, Vomiting, Abdominal Pain, Diarrhea, Melena, Hematochezia Genitourinary: negative: Dysuria, Frequency, Incontinence, Hematuria Musculoskeletal: negative: Neck Pain, Shoulder Pain Skin: negative: Rash Neurological: negative: Weakness, Numbness, Incoordination, Change in Speech, Confusion, Seizures - Medications/Allergies Allergies/Adverse Reactions: Allergies Allergy/AdvReac Type Severity Reaction Status Date / Time Sulfa (Sulfonamide Allergy Verified 04/06/18 09:46 Antibiotics) Current Inpatient Medications: Current Inpatient Medications Acetaminophen (Tylenol) 650 mg PO Q6H PRN PRN Reason: PAIN Last Admin: 04/07/18 19:46 Dose: 650 mg Albuterol/Ipratropium (Duoneb) 3 ml NEB Q4 [facility] Last Admin: 04/07/18 20:46 Dose: 3 ml Aspirin (Aspirin) 81 mg PO DAILY [facility] Carvedilol (Coreg) 25 mg PO BID [facility] Last Admin: 04/07/18 20:22 Dose: 25 mg Duloxetine HCl (Cymbalta) 60 mg PO HS [facility] Last Admin: 04/07/18 20:23 Dose: 60 mg Enoxaparin Sodium (Lovenox) 30 mg SQ QD [facility] Stop: 04/19/18 14:01 Last Admin: 04/07/18 14:23 Dose: 30 mg Furosemide (Lasix) 20 mg PO DAILY [facility] Hydroxychloroquine Sulfate (Plaquenil) 200 mg PO BID [facility] Last Admin: 04/07/18 20:23 Dose: 200 mg Azithromycin 500 mg/ Sodium (Chloride) 250 mls @ 125 mls/hr IV Q24H [facility] Stop: 04/11/18 11:59 Last Admin: 04/07/18 12:56 Dose: 125 mls/hr LEVOFLOXACIN 500MG/D5W 100ML (500 mg/ PREMIX BAG) 100 mls @ 100 mls/hr IV DAILY [facility] Stop: 04/16/18 11:29 Last Admin: 04/07/18 08:43 Dose: 100 mls/hr Levothyroxine Sodium (Synthroid) 25 mcg PO DAILY [facility] Losartan Potassium (Cozaar) 50 mg PO DAILY [facility] Losartan Potassium (Cozaar) 50 mg PO NOW ONE Stop: 04/07/18 18:20 Last Admin: 04/07/18 18:27 Dose: 50 mg Pantoprazole Sodium (Protonix) 40 mg PO DAILY [facility] Polyethylene Glycol (Miralax) 17 gm PO 1100 ANTONIO Last Admin: 04/07/18 18:27 Dose: 17 gm Simethicone (Gas-X) 80 mg PO Q6 PRN PRN Reason: Gas Last Admin: 04/07/18 14:23 Dose: 80 mg Exam - Exam Vital Signs: Vital Signs (72 hours) 04/06/18 04/06/18 04/06/18 12:20 12:26 17:58 Temperature 99.2 F 97.9 F 98.6 F Pulse Rate [ 69 67 Right Pulse ox] Pulse Rate [ 70 Right] Respiratory 17 22 20 Rate Blood Pressure [Left Arm] Blood Pressure 139/89 155/90 144/56 [Right Arm] O2 Sat by Pulse 92 95 97 Oximetry 04/06/18 04/07/18 04/07/18 22:00 02:00 04:00 Temperature 98.4 F 98.7 F Pulse Rate [ Right Pulse ox] Pulse Rate [ 74 79 Right] Respiratory 16 18 18 Rate Blood Pressure [Left Arm] Blood Pressure 167/76 149/64 [Right Arm] O2 Sat by Pulse 95 94 Oximetry 04/07/18 04/07/18 04/07/18 06:00 07:56 08:04 Temperature 98.8 F Pulse Rate [ 83 72 Right Pulse ox] Pulse Rate [ Right] Respiratory 20 20 20 Rate Blood Pressure [Left Arm] Blood Pressure 158/74 [Right Arm] O2 Sat by Pulse 95 Oximetry 04/07/18 04/07/18 04/07/18 09:13 12:00 13:42 Temperature 98.3 F 98.9 F Pulse Rate [ 72 72 77 Right Pulse ox] Pulse Rate [ Right] Respiratory 20 20 20 Rate Blood Pressure 154/76 [Left Arm] Blood Pressure 156/74 [Right Arm] O2 Sat by Pulse 95 93 Oximetry 04/07/18 04/07/18 16:00 18:00 Temperature 99.9 F H Pulse Rate [ 77 Right Pulse ox] Pulse Rate [ 78 Right] Respiratory 20 22 Rate Blood Pressure [Left Arm] Blood Pressure 172/81 [Right Arm] O2 Sat by Pulse 97 Oximetry General: Alert, Oriented to Person, Oriented to Place, Oriented to Time, Cooperative, Mild distress HEENT: Atraumatic, PERRLA, Mouth Mucous membr. moist/[place], Decreased Hearing Acuity Neck: Normal Range of Motion. No: Stridor, Rigidity, Lymphadenopathy Carotids: WNL Thyroid: WNL Lungs: Normal air movement, Speaks full Sentences, Respiratory Distress, Rales ( right anterior), Rhonchi (right anterior). No: Wheezes Cardiovascular: Regular rate, Normal S1, Normal S2, No murmurs Abdomen: Normal bowel sounds, Soft, No tenderness, No hepatospenomegaly, No masses Integumentary: Normal, [place], Warm, Dry Extremities: No clubbing, No cyanosis, Normal pulses, Other (trace edema) Neurological: Normal gait, Normal speech, Strength Equal Bilat, Normal tone, Sensation intact, Cranial nerves 3-12 NL, Reflexes 2+ Psych/Mental Status: Mental status NL, Mood NL, Appropriate Affect, Intact Judgment - Laboratory Results Laboratory Results: Laboratory Results 04/07/18 04/07/18 06:35 06:35 WBC 11.00 RBC 3.54 L Hgb 11.0 L Hct 34.8 MCV 98.1 MCH 30.9 MCHC 31.5 RDW 14.0 Plt Count 218 Neut % (Auto) 85.9 H Lymph % (Auto) 8.1 L [place] % (Auto) 3.6 Eos % (Auto) 1.3 Baso % (Auto) 0.2 Neut # (Auto) 9.4 H Lymph # (Auto) 0.9 [place] # (Auto) 0.4 Eos # (Auto) 0.1 Baso # (Auto) 0.0 Reactive Lymphs % 0.9 Reactive Lymphs # 0.1 Sodium 139 Potassium 3.5 Chloride 100 Carbon Dioxide 34 H BUN 13 Creatinine 0.80 Estimated Creat Clear 180 Est GFR ( Amer) > 60 Est GFR (Non-Af Amer) > 60 Glucose 89 Calcium 8.6 Total Bilirubin 0.5 AST 11 L ALT 26 Alkaline Phosphatase 77 Total Protein 6.3 Albumin 3.2 L Assessment/Plan - Assessment/Plan (1) RLL pneumonia Status: Acute Current Visit: Yes Assessment: Blood cultures drawn, will start Duoneb treatment, supplemental oxygen, IV antibiotics (2) COPD (chronic obstructive pulmonary disease) Status: Chronic Current Visit: Yes Qualifiers: COPD type: emphysema Assessment: continue home meds (3) CHF (congestive heart failure) Status: Chronic Current Visit: No Qualifiers: Heart failure type: systolic Heart failure chronicity: chronic Qualified Code(s): I50.22 - Chronic systolic (congestive) heart failure Assessment: continue home meds (4) Hypertension Status: Chronic Current Visit: No Qualifiers: Hypertension type: essential hypertension Qualified Code(s): I10 - Essential (primary) hypertension Assessment: stable -continue home meds (5) Hypothyroidism Status: Chronic Current Visit: No Assessment: stable - continue home meds VTE Assessment - RISK FACTOR SCORE VTE RISK FACTOR SCORES: AGE OVER 60 YEARS, ACUTE INFECTION OTHER THEN SEPSIS, ANTICIPATED BED CONFINEMENT OR IMMOBILIZATION > 24 HOURS - RISK VTE HIGH RISK: SCORE OF 3-4 (RISK PROXIMAL DVT 4-8%) PROPHYLAXIS NEEDED
--- NOTE | 2018-04-07 21:51 | Inpatient Progress Note ---
Subjective - Required Recertification Statement I anticipate X number of days because-include discharge plan: 1 day - Review of Systems Events since last encounter: Patient states that she is doing some better today. Still has productive cough of green phlegm. Has some chest wall pain related to coughing on the right side. Breathing seems to be doing better. General: Denies: Chills Pulmonary: Dyspnea, Cough, Pleuritic Chest Pain Cardiovascular: Chest Pain. Denies: Palpitations Gastrointestinal: Denies: Nausea, Vomiting Objective - Exam Vitals and I&O: Vital Signs Temp 99.9 F H 04/07/18 18:00 Pulse 78 04/07/18 18:00 Resp 22 04/07/18 18:00 BP 172/81 04/07/18 18:00 Pulse Ox 97 04/07/18 18:00 Intake & Output 04/06/18 04/07/18 04/07/18 23:59 11:59 23:59 Intake Total 770 660 880 Balance 770 660 880 Weight 168 kg Intake: IV 50 Left Wrist 50 Oral 720 660 880 Other: Voiding Method Toilet Toilet Toilet # Voids 1 2 General: Alert, Oriented to Person, Oriented to Place, Oriented to Time, Cooperative Neck: Supple, No JVD Lungs: Normal air movement, Speaks full Sentences, Rhonchi (right). No: Wheezes Cardiovascular: Regular rate, Normal S1, Normal S2, No murmurs Abdomen: Normal bowel sounds, Soft, No tenderness Extremities: No clubbing, No cyanosis, No edema Skin: Normal, [place], Warm, Dry Neurological: Normal gait, Normal speech, Strength Equal Bilat Psych/Mental Status: Mental status NL, Mood NL, Intact Judgment - Results Results: Laboratory Results WBC 11.00 K/ul (4.00-12.00) 04/07/18 06:35 RBC 3.54 M/ul (3.90-5.20) L 04/07/18 06:35 Hgb 11.0 g/dL (12.0-16.0) L 04/07/18 06:35 Hct 34.8 % (34.5-46.5) 04/07/18 06:35 MCV 98.1 fl (80.0-100.0) 04/07/18 06:35 MCH 30.9 pg (28.0-34.0) 04/07/18 06:35 MCHC 31.5 g/dL (30.0-36.0) 04/07/18 06:35 RDW 14.0 % (11.3-14.3) 04/07/18 06:35 Plt Count 218 K/mm3 (130-400) 04/07/18 06:35 Neut % (Auto) 85.9 % (39.0-79.0) H 04/07/18 06:35 Lymph % (Auto) 8.1 % (16.0-50.0) L 04/07/18 06:35 [place] % (Auto) 3.6 % (0.0-11.0) 04/07/18 06:35 Eos % (Auto) 1.3 % (0.0-6.8) 04/07/18 06:35 Baso % (Auto) 0.2 (0.0-1.5) 04/07/18 06:35 Neut # (Auto) 9.4 # k/uL (1.4-7.7) H 04/07/18 06:35 Lymph # (Auto) 0.9 # k/uL (0.6-4.0) 04/07/18 06:35 [place] # (Auto) 0.4 # k/uL (0.0-0.9) 04/07/18 06:35 Eos # (Auto) 0.1 # k/uL (0.0-0.6) 04/07/18 06:35 Baso # (Auto) 0.0 # k/uL (0.0-0.5) 04/07/18 06:35 Seg Neutrophils % 92 % (39-79) H 04/06/18 10:55 Lymphocytes % 4 % (16-50) L 04/06/18 10:55 Reactive Lymphs % 0.9 % (0.0-5.0) 04/07/18 06:35 Monocytes % 3 % (0-11) 04/06/18 10:55 Eosinophils % 1 % (0-7) 04/06/18 10:55 Reactive Lymphs # 0.1 # k/uL (0.0-0.8) 04/07/18 06:35 Plt Morphology Comment Normal (NORMAL) 04/06/18 10:55 RBC Morph Comment Normal (NORMAL) 04/06/18 10:55 Sodium 139 mmol/L (136-145) 04/07/18 06:35 Potassium 3.5 mmol/L (3.5-5.1) 04/07/18 06:35 Chloride 100 mmol/L (98-107) 04/07/18 06:35 Carbon Dioxide 34 mmol/L (22-30) H 04/07/18 06:35 BUN 13 mg/dL (7-17) 04/07/18 06:35 Creatinine 0.80 mg/dL (0.52-1.04) 04/07/18 06:35 Estimated Creat Clear 180 04/07/18 06:35 Est GFR ( Amer) > 60 (60-) 04/07/18 06:35 Est GFR (Non-Af Amer) > 60 (60-) 04/07/18 06:35 Glucose 89 mg/dL (74-106) 04/07/18 06:35 Calcium 8.6 mg/dL (8.4-10.2) 04/07/18 06:35 Total Bilirubin 0.5 mg/dL (0.2-1.3) 04/07/18 06:35 AST 11 U/L (15-46) L 04/07/18 06:35 ALT 26 U/L (13-69) 04/07/18 06:35 Alkaline Phosphatase 77 U/L (38-126) 04/07/18 06:35 Total Protein 6.3 g/dL (6.3-8.2) 04/07/18 06:35 Albumin 3.2 g/dL (3.5-5.0) L 04/07/18 06:35 Assessment/Plan - Assessment/Plan (1) RLL pneumonia Status: Acute Current Visit: Yes Assessment: stable to improved, continue with present care (2) COPD (chronic obstructive pulmonary disease) Status: Chronic Current Visit: Yes Qualifiers: COPD type: emphysema Emphysema type: panlobular Qualified Code(s): J43.1 - Panlobular emphysema Assessment: stable (3) CHF (congestive heart failure) Status: Chronic Current Visit: No Qualifiers: Heart failure type: systolic Heart failure chronicity: chronic Qualified Code(s): I50.22 - Chronic systolic (congestive) heart failure Assessment: stable (4) Hypertension Status: Chronic Current Visit: No Qualifiers: Hypertension type: essential hypertension Qualified Code(s): I10 - Essential (primary) hypertension Assessment: stable
[2018-04-07] MEDS ORDERED: CARVEDILOL 6.25 MG TABLET PO ONE ×2 (23:18→23:20)
[2018-04-07] MEDS ORDERED: ASPIRIN 81 MG CHEW TAB ONE (23:37)
[2018-04-07] MEDS ORDERED: FUROSEMIDE 20 MG TABLET PO ONE (23:38)
[2018-04-07] MEDS ORDERED: PANTOPRAZOLE SODIUM 40 MG TABLET ONE (23:38)
[2018-04-07] MEDS ORDERED: LEVOTHYROXINE SODIUM 25 MCG TABLET ONE (23:39)
[2018-04-08] MEDS: IPRATROPIUM/ALBUTEROL SULFATE 3 ML AMPUL.NEB NEB SCH ×6 (01:03→20:46)
[2018-04-08] MEDS ORDERED: LEVOFLOXACIN 500MG/D5W 100ML 100 ML IV ONE (08:42)
[2018-04-08] MEDS ORDERED: LEVOTHYROXINE SODIUM 25 MCG TABLET PO SCH (09:00)
[2018-04-08] MEDS: FUROSEMIDE 20 MG TABLET PO SCH (09:25)
[2018-04-08] MEDS: PANTOPRAZOLE SODIUM 40 MG TABLET PO SCH (09:26)
[2018-04-08] MEDS: ASPIRIN 81 MG CHEW TAB PO SCH (09:26)
[2018-04-08] MEDS: CARVEDILOL 12.5 MG TABLET PO SCH ×2 (09:27→20:45)
[2018-04-08] MEDS: LOSARTAN POTASSIUM 50 MG TABLET PO SCH (09:27)
[2018-04-08] MEDS: HYDROXYCHLOROQUINE SULFATE 200 MG TABLET PO SCH ×2 (09:33→20:42)
[2018-04-08] MEDS: LEVOFLOXACIN 500MG/D5W 100ML 500 MG in PREMIX BAG 1 BAG IV SCH (09:54)
[2018-04-08] MEDS ORDERED: FUROSEMIDE 40 MG TABLET PO ONE (10:26)
[2018-04-08] MEDS: POLYETHYLENE GLYCOL 3350 17 GM POWD.PACK PO SCH (11:20)
[2018-04-08 12:22] LABS: BASOPHILS % 0.3 (0.0-1.5); EOSINOPHILS % 2.1 % (0.0-6.8); MEAN CORPUSCULAR HEMOGLOBIN 30.5 pg (28.0-34.0); MEAN CORPUSCULAR VOLUME 100.5 fl (80.0-100.0); MONOCYTES % 3.1 % (0.0-11.0); NEUTROPHILS # 5.6 # k/uL (1.4-7.7)
[2018-04-08] MEDS: ENOXAPARIN SODIUM 30 MG/0.3 ML DISP.SYRIN SQ SCH (13:36)
[2018-04-08] MEDS: SIMETHICONE 80 MG TAB.CHEW PO PRN (14:16)
[2018-04-08] MEDS: AZITHROMYCIN 500 MG in 0.9 % SODIUM CHLORIDE 250 ML IV SCH (15:07)
--- NOTE | 2018-04-08 18:56 | Diagnostic Imaging Report ---
GISELLE MENSAH [facility] [address] [facility] [address] Report Submission Date: Apr 08, 2018 9:01:28 AM CDT Patient Study Name: ANAI GONZALEZ Date: Apr 08, 2018 8:36:37 AM CDT Modality Type: DX Gender: F Description: CHEST : 38 Institution: [facility] Physician: GISELLE MENSAH Chest 2 views History: Productive cough and history of pneumonia Findings: Somewhat patchy bilateral pulmonary infiltrates exhibit a predominately perihilar and basilar distribution, right greater left. These have progressively increased since the exam obtained 16 days ago. Pulmonary vascular congestion and mild cardiomegaly are observed. A dual lead transvenous pacemaker is present. There is no pleural effusion. Calcified right hilar granulomas are present. Impression: Progressively worsening bilateral bronchopneumonia versus congestive heart failure. Electronically signed on Apr 08, 2018 9:01:28 AM CDT by: All CASTILLO
[2018-04-08] MEDS: DULoxetine HCL 30 MG CAPSULE.DR PO SCH (20:41)
[2018-04-08] MEDS ORDERED: CARVEDILOL 6.25 MG TABLET PO ONE (20:44)
[2018-04-09] MEDS: IPRATROPIUM/ALBUTEROL SULFATE 3 ML AMPUL.NEB NEB SCH ×3 (01:39→11:24)
[2018-04-09] MEDS ORDERED: CARVEDILOL 6.25 MG TABLET PO ONE (04:59)
[2018-04-09] MEDS: ACETAMINOPHEN 325 MG TABLET PO PRN (05:13)
[2018-04-09] MEDS: PANTOPRAZOLE SODIUM 40 MG TABLET PO SCH (05:18)
[2018-04-09] MEDS ORDERED: LEVOTHYROXINE SODIUM 25 MCG TABLET PO SCH (07:00)
[2018-04-09] MEDS ORDERED: LEVOFLOXACIN 500MG/D5W 100ML 100 ML IV ONE (09:42)
[2018-04-09] MEDS: LEVOFLOXACIN 500MG/D5W 100ML 500 MG in PREMIX BAG 1 BAG IV SCH (09:50)
[2018-04-09] MEDS: HYDROXYCHLOROQUINE SULFATE 200 MG TABLET PO SCH (09:51)
[2018-04-09] MEDS: CARVEDILOL 12.5 MG TABLET PO SCH (09:51)
[2018-04-09] MEDS: LOSARTAN POTASSIUM 50 MG TABLET PO SCH (09:52)
[2018-04-09] MEDS: ASPIRIN 81 MG CHEW TAB PO SCH (09:52)
[2018-04-09] MEDS: FUROSEMIDE 20 MG TABLET PO SCH (09:52)
[2018-04-09] MEDS: POLYETHYLENE GLYCOL 3350 17 GM POWD.PACK PO SCH (11:26)
[2018-04-09 11:29] VITALS: BP 117/65
--- NOTE | 2018-04-26 08:16 | Inpatient Progress Note ---
Subjective - Required Recertification Statement I anticipate X number of days because-include discharge plan: 1 day - Review of Systems Events since last encounter: Patient states that she is starting to feel some better. Patient breathing seem to be improved. Patient does not feel as tight in the chest this but she has been previously. Patient continues to have a productive cough no home offices noted. Patient denies any fever or chills that she is aware. Pulmonary: Dyspnea, Cough Cardiovascular: Denies: Palpitations Gastrointestinal: Denies: Nausea, Vomiting, Abdominal Pain Objective - Exam Vitals and I&O: Vital Signs Temp 97.2 F L 04/09/18 09:41 Pulse 67 04/09/18 09:41 Resp 18 04/09/18 09:41 BP 108/58 04/09/18 09:41 Pulse Ox 93 04/09/18 09:41 General: Alert, Oriented to Person, Oriented to Place, Oriented to Time, Cooperative, Mild distress Neck: Supple Lungs: Speaks full Sentences, Wheezes, Rhonchi (bilareral) Cardiovascular: Regular rate, Normal S1, Normal S2, No murmurs Abdomen: Normal bowel sounds, Soft, No tenderness Extremities: No clubbing, No cyanosis, No edema Skin: Normal, [place], Warm, Dry Psych/Mental Status: Mental status NL - Results Results: Laboratory Results WBC 7.00 K/ul (4.00-12.00) 04/08/18 12:00 RBC 3.53 M/ul (3.90-5.20) L 04/08/18 12:00 Hgb 10.7 g/dL (12.0-16.0) L 04/08/18 12:00 Hct 35.5 % (34.5-46.5) 04/08/18 12:00 MCV 100.5 fl (80.0-100.0) H 04/08/18 12:00 MCH 30.5 pg (28.0-34.0) 04/08/18 12:00 MCHC 30.3 g/dL (30.0-36.0) 04/08/18 12:00 RDW 13.6 % (11.3-14.3) 04/08/18 12:00 Plt Count 218 K/mm3 (130-400) 04/08/18 12:00 Neut % (Auto) 80.5 % (39.0-79.0) H 04/08/18 12:00 Lymph % (Auto) 13.2 % (16.0-50.0) L 04/08/18 12:00 [place] % (Auto) 3.1 % (0.0-11.0) 04/08/18 12:00 Eos % (Auto) 2.1 % (0.0-6.8) 04/08/18 12:00 Baso % (Auto) 0.3 (0.0-1.5) 04/08/18 12:00 Neut # (Auto) 5.6 # k/uL (1.4-7.7) 04/08/18 12:00 Lymph # (Auto) 0.9 # k/uL (0.6-4.0) 04/08/18 12:00 [place] # (Auto) 0.2 # k/uL (0.0-0.9) 04/08/18 12:00 Eos # (Auto) 0.2 # k/uL (0.0-0.6) 04/08/18 12:00 Baso # (Auto) 0.0 # k/uL (0.0-0.5) 04/08/18 12:00 Seg Neutrophils % 92 % (39-79) H 04/06/18 10:55 Lymphocytes % 4 % (16-50) L 04/06/18 10:55 Reactive Lymphs % 0.7 % (0.0-5.0) 04/08/18 12:00 Monocytes % 3 % (0-11) 04/06/18 10:55 Eosinophils % 1 % (0-7) 04/06/18 10:55 Reactive Lymphs # 0.0 # k/uL (0.0-0.8) 04/08/18 12:00 Plt Morphology Comment Normal (NORMAL) 04/06/18 10:55 RBC Morph Comment Normal (NORMAL) 04/06/18 10:55 Sodium 139 mmol/L (136-145) 04/07/18 06:35 Potassium 3.5 mmol/L (3.5-5.1) 04/07/18 06:35 Chloride 100 mmol/L (98-107) 04/07/18 06:35 Carbon Dioxide 34 mmol/L (22-30) H 04/07/18 06:35 BUN 13 mg/dL (7-17) 04/07/18 06:35 Creatinine 0.80 mg/dL (0.52-1.04) 04/07/18 06:35 Estimated Creat Clear 180 04/07/18 06:35 Est GFR ( Amer) > 60 (60-) 04/07/18 06:35 Est GFR (Non-Af Amer) > 60 (60-) 04/07/18 06:35 Glucose 89 mg/dL (74-106) 04/07/18 06:35 Calcium 8.6 mg/dL (8.4-10.2) 04/07/18 06:35 Total Bilirubin 0.5 mg/dL (0.2-1.3) 04/07/18 06:35 AST 11 U/L (15-46) L 04/07/18 06:35 ALT 26 U/L (13-69) 04/07/18 06:35 Alkaline Phosphatase 77 U/L (38-126) 04/07/18 06:35 Total Protein 6.3 g/dL (6.3-8.2) 04/07/18 06:35 Albumin 3.2 g/dL (3.5-5.0) L 04/07/18 06:35 Assessment/Plan - Assessment/Plan (1) RLL pneumonia Status: Acute Assessment: Patient does seem to be improving. Will repeat her chest x-ray. Patient WBC count is back to normal. We will continue with current antibiotic therapy and high flow nebulization treatments. (2) COPD (chronic obstructive pulmonary disease) Status: Chronic Qualifiers: COPD type: emphysema Emphysema type: panlobular Qualified Code(s): J43.1 - Panlobular emphysema Assessment: stable (3) CHF (congestive heart failure) Status: Chronic Qualifiers: Heart failure type: systolic Heart failure chronicity: chronic Qualified Code(s): I50.22 - Chronic systolic (congestive) heart failure Assessment: stable (4) Hypertension Status: Chronic Qualifiers: Hypertension type: essential hypertension Qualified Code(s): I10 - Essential (primary) hypertension Assessment: Will continue with home medications.
--- NOTE | 2018-04-26 08:16 | Discharge Summary ---
Discharge Summary - Discharge Sumary History of Present Illness: Patient is a 77-year-old white female who approximately one week ago was admitted to acute care following acute exacerbation of her COPD/asthma. Patient seemed to be doing well until the last three days. Patient then began to develop some increasing dyspnea and a productive cough up some green to leon phlegm. Patient has had a low-grade fever. No chills noted. Patient is finishing up her prednisone taper. Patient denied any chest pain. Has been having some nasal drainage. Patient subsequently came to the emergency room for evaluation. Patient states that on the morning of admission her SaO2 was 85% on room air. Patient was seen in the emergency room on admission to the ED patient SaO2 was 88% on room air. Patient was given a DuoNeb treatment and started on supplemental oxygen. Patient did have a chest x-ray which showed a new patchy infiltrate. Patient WBC count was elevated at 15,000. It was felt that the patient with developing a pneumonia and was subsequently admitted to the hospital for further care and evaluation. Condition at Discharge: Stable Home Medications: Ambulatory Orders Medication Instructions Recorded Albuterol Sulfate [Proair HFA] 2 puff INH PRN PRN 03/23/18 Aspirin [Radha] 1 tab PO DAILY 03/23/18 Carvedilol [Coreg] 1 tab PO BID 03/23/18 Duloxetine HCl [Cymbalta] 1 tab PO [id number] 03/23/18 Furosemide [Lasix] 1 tab PO DAILY 03/23/18 Hydroxychloroquine Sulfate 1 tab PO BID 03/23/18 [Plaquenil] Levothyroxine Sodium [Levo-T] 1 tab PO DAILY 03/23/18 Pantoprazole Sodium [Protonix] 1 tab PO DAILY 03/23/18 Rosuvastatin Calcium [Crestor] 1 tab PO HS 03/23/18 Telmisartan 1 tab PO DAILY 03/23/18 Azithromycin 250 mg PO D #4 tablet 04/08/18 Ipratropium/Albuterol Sulfate 3 ml NEB Q4 PRN #30 ampul.neb 04/08/18 [Duoneb] Levofloxacin [Levaquin] 500 mg PO D #7 tablet 04/08/18 Consultations this Visit: None Procedures this Visit: None Allergies/Adverse Reactions: Allergies Allergy/AdvReac Type Severity Reaction Status Date / Time Sulfa (Sulfonamide Allergy Verified 04/06/18 09:46 Antibiotics) Discharge Summary: Patient was felt to have right lower lobe bronchial pneumonia with possible bilateral infiltrates. Patient was started on Levaquin and azithromycin. Patient WBC count did improve 14,000 to 7000 time to discharge. Patient breathing did improve during her course of hospital stay however she did remain short of breath with minimal exertion. Patient other chronic medical problems remain stable. Patient did have a mild exacerbation of the congestive heart failure felt to be related to the fluids that she received. At the time of dismissal patient was stable. - Final Diagnosis (2) COPD (chronic obstructive pulmonary disease) Problems: Stable on home medications (3) CHF (congestive heart failure) Problems: Stable on home medications (4) Hypertension Problems: Stable on home medications (5) Hypothyroidism Problems: Stable on home medications
== END 2018-04-09 11:29 | disposition home or self-care (01) | DRG 194 ==
LOC: ED 09:32 → SOUTH 11:42
PROVIDERS: ADMIT Family Medicine; ATTEND Family Medicine
DX: J18.8 Other pneumonia, unspecified organism (principal); J44.1 Chronic obstructive pulmonary disease with (acute) exacerbation; I50.22 Chronic systolic (congestive) heart failure; I10 Essential (primary) hypertension; Z87.891 Personal history of nicotine dependence
CPT/HCPCS: 36415; 71046; 80053; 85025; 87040; 94640; 96365; 96367; 96375; 99222; 99232; 99238; J0456; J1650; J1956; J7050; S1016